=== PATIENT | male | born 1975 | race Caucasian/White ===

== ENCOUNTER 2018-06-03 17:29 | Inpatient (IN) | payer MEDICAID, OTHER ==
[~2018-06-03] VITALS: Ht 172.7 cm; Wt 84.0 kg
[2018-06-03] MEDS ORDERED: cefazolin/dext.iso 2gm/100ml 100 ML IV STA (18:51)
[2018-06-03] MEDS ORDERED: NO HOME MEDS (18:54)
[2018-06-03] MEDS ORDERED: normal saline 1000ML IV soln IV ONE (18:55)
[2018-06-03] MEDS ORDERED: morphine 4 MG/ML inj SYRINge IV ONE (19:10)
[2018-06-03] MEDS ORDERED: ketorolac tromethamine 15mg/ml inj. IV ONE (19:10)
[2018-06-03 19:18] LABS: BASOPHILS % (AUTO) 0.1 % (0-1); EOSINOPHILS # (AUTO) 0.2 X10'3 (0-0.9); EOSINOPHILS % (AUTO) 1.1 % (0-6); HEMATOCRIT 39.5 % (42.0-52.0); HEMOGLOBIN 13.2 g/dl (14.0-17.9); LYMPHOCYTES # (AUTO) 1.1 X10'3 (1.1-4.8); LYMPHOCYTES % (AUTO) 6.6 % (21-51); MEAN CORPUSCULAR HEMOGLOBIN 29.3 PG (27.0-31.0); MEAN CORPUSCULAR HGB CONC 33.4 % (33.0-36.5); MEAN CORPUSCULAR VOLUME 87.8 FL (78-98); MEAN PLATELET VOLUME 7.5 FL (7.4-10.4); MONOCYTES # (AUTO) 0.9 X10'3 (0-0.9); MONOCYTES % (AUTO) 5.7 % (2-12); NEUTROPHILS % (AUTO) 86.5 % (42-75); PLATELET COUNT 222 X10'3 (140-440); RED BLOOD COUNT 4.49 X10'6 (4.70-6.10); RED CELL DISTRIBUTION WIDTH 13.2 % (11.5-14.5); WHITE BLOOD COUNT 16.2 X10'3 (4.5-11.0)
[2018-06-03] MEDS ORDERED: cefazolin/dext.iso 2gm/50ml 50 ML IV STA (19:22)
[2018-06-03 19:34] LABS: ALANINE AMINOTRANSFERASE 27 U/L (12-78); ALBUMIN 3.6 G/DL (3.4-5.0); ALBUMIN/GLOBULIN RATIO 0.9 (1.1-1.5); ALKALINE PHOSPHATASE 54 IU/L (46-116); ANION GAP 9 (8-16); ASPARTATE AMINO TRANSFERASE 14 U/L (10-37); BILIRUBIN,TOTAL 1.5 MG/DL (0.1-1.0); BLOOD UREA NITROGEN 19 MG/DL (7-18); BUN/CREATININE RATIO 15.1 (5.4-32.0); CALCIUM 9.3 MG/DL (8.5-10.1); CHLORIDE 103 MMOL/L (99-107); CREATININE 1.26 MG/DL (0.60-1.10); GLUCOSE 113 MG/DL (70-104); POTASSIUM 3.6 MMOL/L (3.5-5.1); SODIUM 137 MMOL/L (135-145); TOTAL CARBON DIOXIDE 24.6 MMOL/L (24-32); TOTAL PROTEIN 7.4 G/DL (6.4-8.2); eGFR 63 ML/MIN
[2018-06-03 20:37] LABS: TOTAL CELLS COUNTED 100
[2018-06-03 20:38] LABS: PLATELET ESTIMATE NORMAL; TOXIC GRANULATION 1+
[2018-06-03] MEDS ORDERED: temazepam 15mg capsule PO PRN (21:00)
[2018-06-03] MEDS ORDERED: diphenhydrAMINE 25mg capsule PO PRN (21:10)
[2018-06-03] MEDS ORDERED: HYDROmorphone 1 mg/ml syringe IV PRN (21:10)
[2018-06-03] MEDS ORDERED: acetaminophen 650mg rectal suppository RC PRN (21:10)
[2018-06-03] MEDS ORDERED: ondansetron/PF 4mg/2ml inj IV PRN (21:10)
[2018-06-03] MEDS ORDERED: diphenhydrAMINE 50 mg/ml inj IV PRN (21:10)
[2018-06-03] MEDS ORDERED: morphine 2 MG/ML inj. syringe IV PRN (21:10)
[2018-06-03] MEDS ORDERED: metoclopramide 5 mg/ml inj IV PRN (21:10)
[2018-06-03] MEDS ORDERED: HYDROcodone/acetaminophen 10/325mg tab PO PRN (21:10)
[2018-06-03] MEDS ORDERED: magnesium hydroxide 30ml (MOM) UD suspension PO PRN (21:10)
[2018-06-03] MEDS ORDERED: bisacodyl 10mg suppository rectal RC PRN (21:10)
[2018-06-03] MEDS ORDERED: tetanus & diphtheria toxoid (Td) vaccine 0.5ml IMVAC ONE (21:15)
[2018-06-03] MEDS ORDERED: TETanus/Pertussis (Acell)/Diphther VAC/PF (Tdap-Adult) 0.5ml syringe IMVAC ONE (21:30)
[2018-06-03 21:58] LABS: MAGNESIUM 1.8 MG/DL (1.5-2.4); PARTIAL THROMBOPLASTIN TIME 33 SECONDS (22-32)
[2018-06-03] MEDS: potassium Cl 20mEq in NS 1,000 ML IV SCH (21:58)
[2018-06-03 22:56] VITALS: BP 121/56
[2018-06-04] MEDS ORDERED: cefazolin/dext.iso 2gm/50ml 100 ML IV SCH
[2018-06-04] MEDS ORDERED: piperacillin/tazo 4.5gm/100ml 100 ML IV SCH
[2018-06-04] MEDS ORDERED: cefazolin/dext.iso 2gm/50ml 50 ML IV SCH
[2018-06-04] MEDS: acetaminophen 325mg tablet PO PRN ×2 (02:15→08:13)
[2018-06-04 05:13] LABS: BASOPHILS % (AUTO) 0.1 % (0-1); EOSINOPHILS # (AUTO) 0.2 X10'3 (0-0.9); EOSINOPHILS % (AUTO) 1.3 % (0-6); HEMATOCRIT 34.9 % (42.0-52.0); HEMOGLOBIN 11.7 g/dl (14.0-17.9); LYMPHOCYTES # (AUTO) 0.6 X10'3 (1.1-4.8); LYMPHOCYTES % (AUTO) 4.6 % (21-51); MEAN CORPUSCULAR HEMOGLOBIN 29.5 PG (27.0-31.0); MEAN CORPUSCULAR HGB CONC 33.6 % (33.0-36.5); MEAN CORPUSCULAR VOLUME 87.9 FL (78-98); MEAN PLATELET VOLUME 7.8 FL (7.4-10.4); MONOCYTES # (AUTO) 0.7 X10'3 (0-0.9); MONOCYTES % (AUTO) 5.4 % (2-12); NEUTROPHILS # (AUTO) 11.4 X10'3 (1.8-7.7); NEUTROPHILS % (AUTO) 88.6 % (42-75); PLATELET COUNT 192 X10'3 (140-440); RED BLOOD COUNT 3.97 X10'6 (4.70-6.10); RED CELL DISTRIBUTION WIDTH 13.2 % (11.5-14.5); WHITE BLOOD COUNT 12.9 X10'3 (4.5-11.0)
[2018-06-04 05:32] LABS: ALANINE AMINOTRANSFERASE 33 U/L (12-78); ALBUMIN 2.9 G/DL (3.4-5.0); ALBUMIN/GLOBULIN RATIO 0.9 (1.1-1.5); ALKALINE PHOSPHATASE 56 IU/L (46-116); ANION GAP 10 (8-16); ASPARTATE AMINO TRANSFERASE 25 U/L (10-37); BILIRUBIN,TOTAL 1.5 MG/DL (0.1-1.0); BLOOD UREA NITROGEN 16 MG/DL (7-18); BUN/CREATININE RATIO 12.4 (5.4-32.0); CALCIUM 8.1 MG/DL (8.5-10.1); CHLORIDE 105 MMOL/L (99-107); CREATININE 1.29 MG/DL (0.60-1.10); GLUCOSE 154 MG/DL (70-104); POTASSIUM 3.7 MMOL/L (3.5-5.1); SODIUM 139 MMOL/L (135-145); TOTAL PROTEIN 6.3 G/DL (6.4-8.2); eGFR 62 ML/MIN
[2018-06-04 07:07] VITALS: BP 114/60
[2018-06-04] MEDS ORDERED: vancomycin/NS 1 GM ADD-VANTAGE 250 ML IV SCH (08:00)
[2018-06-04] MEDS: docusate sod 100mg capsule PO SCH ×2 (08:13→20:47)
[2018-06-04] MEDS: pantoprazole 40mg Tablet.DR PO SCH (08:13)
[2018-06-04] MEDS: heparin, porcine 5000 units/ml vial SQ SCH ×2 (08:14→20:46)
[2018-06-04] MEDS: potassium Cl 20mEq in NS 1,000 ML IV SCH ×2 (08:18→18:35)
[2018-06-04] MEDS ORDERED: vancomycin inj 1,250 MG in normal saline 250ml IV soln 250 ML IV SCH (09:00)
[2018-06-04] MEDS ORDERED: iohexol 300mg/ml 100ml inj. ONE (10:30)
[2018-06-04] MEDS: mag hydrox/Alum hydrox/simeth 30ml oral suspension PO PRN ×2 (11:23→17:44)
[2018-06-04] MEDS: ibuprofen tablet 400 MG TABLET PO SCH ×3 (12:30→17:44)
[2018-06-04 12:36] VITALS: BP 117/58
[2018-06-04] MEDS: fluticasone nasal spray 16GM bottle NS SCH (13:15)
[2018-06-04] MEDS: levoFLOXACIN-Levaquin 500mg/D5 100 ML IV SCH (14:22)
[2018-06-04 19:19] VITALS: BP 109/64
[2018-06-04] MEDS: lactobacillus rhamnosus 10,000 MMU CELLS/CAPSULE PO SCH (20:47)
[2018-06-04] MEDS: vancomycin inj 1,250 MG in normal saline 250ml IV soln 250 ML IV SCH (23:13)
[2018-06-05] VITALS: BP 100/57
[2018-06-05] MEDS: potassium Cl 20mEq in NS 1,000 ML IV SCH ×2 (05:29→23:19)
[2018-06-05 05:42] LABS: ALANINE AMINOTRANSFERASE 87 U/L (12-78); ALBUMIN 2.7 G/DL (3.4-5.0); ALBUMIN/GLOBULIN RATIO 0.8 (1.1-1.5); ALKALINE PHOSPHATASE 65 IU/L (46-116); ANION GAP 8 (8-16); ASPARTATE AMINO TRANSFERASE 61 U/L (10-37); BILIRUBIN,TOTAL 1.2 MG/DL (0.1-1.0); BLOOD UREA NITROGEN 16 MG/DL (7-18); BUN/CREATININE RATIO 14.5 (5.4-32.0); CHLORIDE 105 MMOL/L (99-107); GLUCOSE 113 MG/DL (70-104); POTASSIUM 4.1 MMOL/L (3.5-5.1); SODIUM 139 MMOL/L (135-145); TOTAL PROTEIN 6.3 G/DL (6.4-8.2); eGFR 74 ML/MIN
[2018-06-05 05:46] LABS: HEMATOCRIT 34.3 % (42.0-52.0); MEAN CORPUSCULAR HEMOGLOBIN 30.5 PG (27.0-31.0); MEAN CORPUSCULAR VOLUME 87.1 FL (78-98); RED BLOOD COUNT 3.94 X10'6 (4.70-6.10); RED CELL DISTRIBUTION WIDTH 12.1 % (11.5-14.5); WHITE BLOOD COUNT 10.6 X10'3 (4.5-11.0)
[2018-06-05 05:47] LABS: BASOPHILS % (AUTO) 0.1 % (0-1); EOSINOPHILS # (AUTO) 0.3 X10'3 (0-0.9); EOSINOPHILS % (AUTO) 3 % (0-6); LYMPHOCYTES # (AUTO) 0.6 X10'3 (1.1-4.8); LYMPHOCYTES % (AUTO) 6.1 % (21-51); MEAN PLATELET VOLUME 9.1 FL (7.4-10.4); MONOCYTES # (AUTO) 0.5 X10'3 (0-0.9); MONOCYTES % (AUTO) 4.9 % (2-12); NEUTROPHILS # (AUTO) 9.2 X10'3 (1.8-7.7); NEUTROPHILS % (AUTO) 85.9 % (42-75); PLATELET COUNT 137 X10'3 (140-440)
[2018-06-05 07:00] VITALS: BP 107/59
[2018-06-05] MEDS: fluticasone nasal spray 16GM bottle NS SCH (08:00)
[2018-06-05] MEDS: lactobacillus rhamnosus 10,000 MMU CELLS/CAPSULE PO SCH ×2 (08:17→20:15)
[2018-06-05] MEDS: famotidine 20mg tablet PO SCH (08:17)
[2018-06-05] MEDS: heparin, porcine 5000 units/ml vial SQ SCH ×2 (08:17→20:17)
[2018-06-05] MEDS: levoFLOXACIN-Levaquin 500mg/D5 100 ML IV SCH (08:17)
[2018-06-05] MEDS: docusate sod 100mg capsule PO SCH ×2 (08:18→20:15)
[2018-06-05] MEDS: pantoprazole 40mg Tablet.DR PO SCH (08:18)
[2018-06-05] MEDS: ibuprofen tablet 400 MG TABLET PO SCH ×3 (08:18→17:55)
[2018-06-05 09:20] LABS: PLATELET ESTIMATE DECREASED; TOTAL CELLS COUNTED 100
[2018-06-05 11:30] VITALS: BP 110/71
[2018-06-05] MEDS: vancomycin inj 1,250 MG in normal saline 250ml IV soln 250 ML IV SCH ×2 (11:38→23:17)
[2018-06-05 19:57] VITALS: BP 117/65
[2018-06-05] MEDS ORDERED: VANCOMYCIN LEVEL IV ONE (22:30)
[2018-06-06 00:30] VITALS: BP 110/50
[2018-06-06 05:34] LABS: BASOPHILS % (AUTO) 0.3 % (0-1); EOSINOPHILS # (AUTO) 0.4 X10'3 (0-0.9); EOSINOPHILS % (AUTO) 4.6 % (0-6); HEMATOCRIT 33.1 % (42.0-52.0); HEMOGLOBIN 11.1 g/dl (14.0-17.9); LYMPHOCYTES % (AUTO) 12.9 % (21-51); MEAN CORPUSCULAR HEMOGLOBIN 29.5 PG (27.0-31.0); MEAN CORPUSCULAR HGB CONC 33.6 % (33.0-36.5); MEAN CORPUSCULAR VOLUME 87.7 FL (78-98); MEAN PLATELET VOLUME 8.6 FL (7.4-10.4); MONOCYTES # (AUTO) 0.6 X10'3 (0-0.9); MONOCYTES % (AUTO) 7.4 % (2-12); NEUTROPHILS % (AUTO) 74.8 % (42-75); PLATELET COUNT 195 X10'3 (140-440); RED BLOOD COUNT 3.77 X10'6 (4.70-6.10); RED CELL DISTRIBUTION WIDTH 12.8 % (11.5-14.5)
[2018-06-06 05:48] LABS: ALANINE AMINOTRANSFERASE 62 U/L (12-78); ALBUMIN 2.6 G/DL (3.4-5.0); ALBUMIN/GLOBULIN RATIO 0.7 (1.1-1.5); ALKALINE PHOSPHATASE 76 IU/L (46-116); ANION GAP 10 (8-16); ASPARTATE AMINO TRANSFERASE 31 U/L (10-37); BILIRUBIN,TOTAL 0.5 MG/DL (0.1-1.0); BLOOD UREA NITROGEN 16 MG/DL (7-18); BUN/CREATININE RATIO 15.1 (5.4-32.0); CALCIUM 8.3 MG/DL (8.5-10.1); CHLORIDE 107 MMOL/L (99-107); CREATININE 1.06 MG/DL (0.60-1.10); GLUCOSE 98 MG/DL (70-104); POTASSIUM 3.8 MMOL/L (3.5-5.1); SODIUM 142 MMOL/L (135-145); TOTAL CARBON DIOXIDE 24.9 MMOL/L (24-32); TOTAL PROTEIN 6.2 G/DL (6.4-8.2); eGFR 77 ML/MIN
[2018-06-06 07:11] VITALS: BP 109/64
[2018-06-06] MEDS: fluticasone nasal spray 16GM bottle NS SCH (08:00)
[2018-06-06] MEDS: heparin, porcine 5000 units/ml vial SQ SCH ×2 (08:06→19:22)
[2018-06-06] MEDS: lactobacillus rhamnosus 10,000 MMU CELLS/CAPSULE PO SCH ×2 (08:06→19:21)
[2018-06-06] MEDS: ibuprofen tablet 400 MG TABLET PO SCH ×3 (08:07→17:54)
[2018-06-06] MEDS: docusate sod 100mg capsule PO SCH ×2 (08:07→19:21)
[2018-06-06] MEDS: famotidine 20mg tablet PO SCH (08:07)
[2018-06-06] MEDS: pantoprazole 40mg Tablet.DR PO SCH (08:07)
[2018-06-06] MEDS: vancomycin inj 1,250 MG in normal saline 250ml IV soln 250 ML IV SCH ×2 (08:11→17:55)
[2018-06-06] MEDS: levoFLOXACIN 500mg tablet PO SCH (11:43)
[2018-06-06 12:00] VITALS: BP 102/51
[2018-06-06] MEDS ORDERED: iohexol 300mg/ml 100ml inj. ONE (16:56)
[2018-06-06] MEDS: potassium Cl 20mEq in NS 1,000 ML IV SCH (17:54)
[2018-06-06 18:30] VITALS: BP 131/59
[2018-06-07 00:29] VITALS: BP 110/52
[2018-06-07] MEDS: potassium Cl 20mEq in NS 1,000 ML IV SCH ×2 (03:47→13:56)
[2018-06-07 07:25] VITALS: BP 116/71
[2018-06-07] MEDS ORDERED: VANCOMYCIN LEVEL IV ONE (07:30)
[2018-06-07] MEDS: fluticasone nasal spray 16GM bottle NS SCH (08:00)
[2018-06-07] MEDS: lactobacillus rhamnosus 10,000 MMU CELLS/CAPSULE PO SCH ×2 (08:13→20:23)
[2018-06-07] MEDS: ibuprofen tablet 400 MG TABLET PO SCH ×3 (08:13→17:57)
[2018-06-07] MEDS: docusate sod 100mg capsule PO SCH ×2 (08:13→20:23)
[2018-06-07] MEDS: pantoprazole 40mg Tablet.DR PO SCH (08:13)
[2018-06-07] MEDS: famotidine 20mg tablet PO SCH (08:13)
[2018-06-07] MEDS: vancomycin inj 1,250 MG in normal saline 250ml IV soln 250 ML IV SCH ×4 (08:14→16:54)
[2018-06-07] MEDS: heparin, porcine 5000 units/ml vial SQ SCH ×2 (08:14→20:00)
[2018-06-07 08:53] LABS: BASOPHILS % (AUTO) 0.4 % (0-1); EOSINOPHILS # (AUTO) 0.3 X10'3 (0-0.9); EOSINOPHILS % (AUTO) 4.4 % (0-6); HEMATOCRIT 34.7 % (42.0-52.0); HEMOGLOBIN 11.8 g/dl (14.0-17.9); LYMPHOCYTES # (AUTO) 1.3 X10'3 (1.1-4.8); MEAN CORPUSCULAR HEMOGLOBIN 29.9 PG (27.0-31.0); MEAN CORPUSCULAR HGB CONC 34.1 % (33.0-36.5); MEAN CORPUSCULAR VOLUME 87.7 FL (78-98); MEAN PLATELET VOLUME 7.8 FL (7.4-10.4); MONOCYTES # (AUTO) 0.4 X10'3 (0-0.9); MONOCYTES % (AUTO) 5.9 % (2-12); NEUTROPHILS # (AUTO) 5.3 X10'3 (1.8-7.7); NEUTROPHILS % (AUTO) 71.3 % (42-75); PLATELET COUNT 283 X10'3 (140-440); RED BLOOD COUNT 3.96 X10'6 (4.70-6.10); WHITE BLOOD COUNT 7.5 X10'3 (4.5-11.0)
[2018-06-07 09:08] LABS: ALANINE AMINOTRANSFERASE 64 U/L (12-78); ALBUMIN 2.9 G/DL (3.4-5.0); ALBUMIN/GLOBULIN RATIO 0.7 (1.1-1.5); ALKALINE PHOSPHATASE 61 IU/L (46-116); ANION GAP 7 (8-16); ASPARTATE AMINO TRANSFERASE 23 U/L (10-37); BILIRUBIN,TOTAL 0.5 MG/DL (0.1-1.0); BLOOD UREA NITROGEN 16 MG/DL (7-18); BUN/CREATININE RATIO 14.8 (5.4-32.0); CALCIUM 8.5 MG/DL (8.5-10.1); CHLORIDE 107 MMOL/L (99-107); CREATININE 1.08 MG/DL (0.60-1.10); GLUCOSE 102 MG/DL (70-104); POTASSIUM 3.7 MMOL/L (3.5-5.1); SODIUM 142 MMOL/L (135-145); TOTAL CARBON DIOXIDE 27.9 MMOL/L (24-32); TOTAL PROTEIN 6.8 G/DL (6.4-8.2); VANCOMYCIN,TROUGH 16.2 UG/ML (6.0-14.0); eGFR 76 ML/MIN
[2018-06-07 11:30] VITALS: BP 103/51
[2018-06-07] MEDS: levoFLOXACIN 500mg tablet PO SCH (11:57)
[2018-06-07 20:00] VITALS: BP 129/70
[2018-06-08] VITALS: BP 123/63
[2018-06-08] MEDS: vancomycin inj 1,250 MG in normal saline 250ml IV soln 250 ML IV SCH ×2 (00:16→08:49)
[2018-06-08 05:44] LABS: ALANINE AMINOTRANSFERASE 80 U/L (12-78); ALBUMIN 2.6 G/DL (3.4-5.0); ALBUMIN/GLOBULIN RATIO 0.7 (1.1-1.5); ALKALINE PHOSPHATASE 62 IU/L (46-116); ANION GAP 10 (8-16); ASPARTATE AMINO TRANSFERASE 48 U/L (10-37); BILIRUBIN,TOTAL 0.4 MG/DL (0.1-1.0); BLOOD UREA NITROGEN 15 MG/DL (7-18); BUN/CREATININE RATIO 15.3 (5.4-32.0); CALCIUM 8.3 MG/DL (8.5-10.1); CHLORIDE 107 MMOL/L (99-107); CREATININE 0.98 MG/DL (0.60-1.10); GLUCOSE 90 MG/DL (70-104); POTASSIUM 3.9 MMOL/L (3.5-5.1); SODIUM 141 MMOL/L (135-145); TOTAL CARBON DIOXIDE 24.1 MMOL/L (24-32); TOTAL PROTEIN 6.1 G/DL (6.4-8.2); eGFR 85 ML/MIN
[2018-06-08 06:21] LABS: BASOPHILS % (AUTO) 0.7 % (0-1); EOSINOPHILS # (AUTO) 0.3 X10'3 (0-0.9); EOSINOPHILS % (AUTO) 4.7 % (0-6); HEMATOCRIT 33.1 % (42.0-52.0); HEMOGLOBIN 11.1 g/dl (14.0-17.9); LYMPHOCYTES # (AUTO) 1.7 X10'3 (1.1-4.8); LYMPHOCYTES % (AUTO) 23.3 % (21-51); MEAN CORPUSCULAR HEMOGLOBIN 29.6 PG (27.0-31.0); MEAN CORPUSCULAR HGB CONC 33.6 % (33.0-36.5); MEAN CORPUSCULAR VOLUME 88.1 FL (78-98); MEAN PLATELET VOLUME 8.5 FL (7.4-10.4); MONOCYTES # (AUTO) 0.3 X10'3 (0-0.9); MONOCYTES % (AUTO) 3.8 % (2-12); NEUTROPHILS % (AUTO) 67.5 % (42-75); PLATELET COUNT 245 X10'3 (140-440); RED BLOOD COUNT 3.76 X10'6 (4.70-6.10); RED CELL DISTRIBUTION WIDTH 13.1 % (11.5-14.5); WHITE BLOOD COUNT 7.3 X10'3 (4.5-11.0)
[2018-06-08 07:26] VITALS: BP 126/66
[2018-06-08] MEDS: fluticasone nasal spray 16GM bottle NS SCH (08:00)
[2018-06-08] MEDS: heparin, porcine 5000 units/ml vial SQ SCH (08:00)
[2018-06-08] MEDS: potassium Cl 20mEq in NS 1,000 ML IV SCH (08:23)
[2018-06-08] MEDS: famotidine 20mg tablet PO SCH (08:48)
[2018-06-08] MEDS: lactobacillus rhamnosus 10,000 MMU CELLS/CAPSULE PO SCH (08:48)
[2018-06-08] MEDS: pantoprazole 40mg Tablet.DR PO SCH (08:48)
[2018-06-08] MEDS: docusate sod 100mg capsule PO SCH (08:48)
[2018-06-08] MEDS: ibuprofen tablet 400 MG TABLET PO SCH ×2 (08:49→12:30)
[2018-06-08] MEDS ORDERED: SULF1TAB49 PO (10:38)
[2018-06-08] MEDS: levoFLOXACIN 500mg tablet PO SCH (10:48)
== END 2018-06-08 12:43 | disposition home or self-care (01) | DRG 720 ==
LOC: ER 17:29 → ED HOLD 21:08 → SUR 3N 22:25
PROVIDERS: ADMIT Family Medicine; ATTEND Family Medicine
PROC: BW2G1ZZ Computerized Tomography (CT Scan) of Pelvic Region using Low Osmolar Contrast (ICD-10-PCS; principal; 2018-06-04)
PROC: BW2G1ZZ Computerized Tomography (CT Scan) of Pelvic Region using Low Osmolar Contrast (ICD-10-PCS; 2018-06-06)
DX: A41.9 Sepsis, unspecified organism (principal); N17.9 Acute kidney failure, unspecified; L03.314 Cellulitis of groin; M41.9 Scoliosis, unspecified; B95.62 Methicillin resistant Staphylococcus aureus infection as the cause of diseases classified elsewhere; E86.0 Dehydration; Z88.0 Allergy status to penicillin
CPT/HCPCS: 36415; 71045; 72193; 80053; 80202; 83605; 83735; 84145; 85025; 85730; 87040; 87070; 87075; 87077; 87186; 90715; 96365; 99285; G0378; J0690; J1644; J1885; J1956; J2270; J2543; J3370; J7030; Q9967